=== PATIENT | male | born 1990 | race African-American/Black ===

== ENCOUNTER 2022-11-11 23:35 | Emergency (ER) | payer OTHER ==
[2022-11-11] MEDS ORDERED: levETIRAcetam 500 MG/5 ML VIAL ONE (23:52)
[2022-11-12 00:15] LABS: ALT (SGPT) 13 U/L (8-55); AST (SGOT) 22 U/L (5-34); Albumin 4.4 g/dL (3.5-5.0); Alkaline Phosphatase 66 U/L (40-110); Anion Gap 13 mmol/L (10-20); BUN (Urea Nitrogen) 11 mg/dL (8.9-20.6); Bilirubin, Total 1.1 mg/dL (0.2-1.2); Calc. Creatinine Clearance 0 mL/min (70-130); Calcium 9.8 mg/dL (7.8-10.44); Carbon Dioxide 23 mmol/L (22-29); Chloride 108 mmol/L (98-107); Estimated GFR 119; Globulin 2.8 g/dL (2.4-3.5); Glucose 121 mg/dL (70-105); Potassium 3.5 mmol/L (3.5-5.1); Protein, Total 7.2 g/dL (6.0-8.3); Sodium 140 mmol/L (136-145)
[2022-11-12] MEDS ORDERED: Ketorolac Tromethamine 30 MG/ML VIAL ONE (00:24)
[2022-11-12 00:28] LABS: Bilirubin Neg (Negative); Blood, Urine Negative (Negative); Clarity Clear (Clear); Glucose, Urine (Dipstick) Normal (Negative); Ketone, Urine Negative (Negative); Leukocyte Negative (Negative); Nitrite Negative (Negative); Protein, Urine (Dipstick) 15 mg/dl (Neg-Trace); pH, Urine 6.5 (5.0-9.0)
[2022-11-12 00:31] LABS: #Monocytes 0.7 10x3/uL (0.0-1.1); #Neutrophils 4.9 10x3/uL (1.5-8.4); %Basophils 0.4 % (0.0-2.0); %Eosinophils 0.5 % (0.0-6.0); %Monocytes 8.1 % (0.0-10.0); %Neutrophils 58.6 % (40.0-75.0); Hematocrit 45.8 % (38.8-50.0); Mean Corpuscular HGB CONC 34.9 g/dL (32.0-36.0); Mean Corpuscular Hemoglobin 33.8 pg (27.0-33.0); Mean Corpuscular Volume 96.6 fl (81.2-95.1); Mean Platelet Volume 12.1 fl (7.4-10.4); Platelet Count 193 10x3/uL (150-450); RBC Distribution Width 12.9 % (11.5-14.5); Red Blood Cell (RBC) Count 4.74 10x6/uL (4.32-5.72); White Blood Cell (WBC) Count 8.3 10x3/uL (3.5-10.5)
[2022-11-12 00:52] LABS: Bacteria/HPF None Seen HPF (None Seen); CAUTI Indications for Culture Dysuria,urgency,freq; RBC/HPF None Seen HPF (0-3); Squamous Epithelial None Seen HPF (0-3); WBC/HPF 0-3 HPF (0-3)
[2022-11-12 00:53] LABS: Urine Culture Reflex No No
== END 2022-11-12 01:15 | disposition home or self-care (01) ==
LOC: CSHERS 23:35
DX: G40.909 Epilepsy, unspecified, not intractable, without status epilepticus (principal); I10 Essential (primary) hypertension; F17.210 Nicotine dependence, cigarettes, uncomplicated
CPT/HCPCS: 36415; 71045; 80053; 81001; 85025; J1885; J1953

== ENCOUNTER 2022-11-12 11:50 | Inpatient (IN) | payer OTHER ==
[2022-11-12 12:29] LABS: #Monocytes 0.6 10x3/uL (0.0-1.1); #Neutrophils 5.1 10x3/uL (1.5-8.4); %Basophils 0.1 % (0.0-2.0); %Eosinophils 0.4 % (0.0-6.0); %Lymphocytes 20.7 % (18.0-47.0); %Monocytes 8.2 % (0.0-10.0); %Neutrophils 70.2 % (40.0-75.0); Hematocrit 45.5 % (38.8-50.0); Hemoglobin 15.7 g/dL (13.5-17.5); Mean Corpuscular HGB CONC 34.5 g/dL (32.0-36.0); Mean Corpuscular Hemoglobin 33.3 pg (27.0-33.0); Mean Corpuscular Volume 96.4 fl (81.2-95.1); Mean Platelet Volume 11.7 fl (7.4-10.4); Platelet Count 179 10x3/uL (150-450); RBC Distribution Width 12.9 % (11.5-14.5); Red Blood Cell (RBC) Count 4.72 10x6/uL (4.32-5.72); White Blood Cell (WBC) Count 7.2 10x3/uL (3.5-10.5)
[2022-11-12 12:36] LABS: Amphetamine Not Detected (NotDetected); Barbiturates Screen Not Detected (NotDetected); Benzodiazepine Screen Not Detected (NotDetected); Cocaine Metabolite Screen Not Detected (NotDetected); Methadone Not Detected (NotDetected); Methamphetamine Not Detected (NotDetected); Opiate Screen Not Detected (NotDetected); Oxycodone Screen Not Detected (NotDetected); Phencyclidine (PCP) Not Detected (NotDetected); THC/Cannabinoid Screen Detected (NotDetected); Tricyclic Screen Not Detected (NotDetected)
[2022-11-12 12:40] LABS: ALT (SGPT) 13 U/L (8-55); AST (SGOT) 23 U/L (5-34); Albumin 4.6 g/dL (3.5-5.0); Alcohol Less than 10.0 mg/dL (Less than 10); Alkaline Phosphatase 68 U/L (40-110); Anion Gap 16 mmol/L (10-20); BUN (Urea Nitrogen) 11 mg/dL (8.9-20.6); Calc. Creatinine Clearance 0 mL/min (70-130); Calcium 10.1 mg/dL (7.8-10.44); Carbon Dioxide 22 mmol/L (22-29); Chloride 109 mmol/L (98-107); Estimated GFR 118; Globulin 2.7 g/dL (2.4-3.5); Glucose 92 mg/dL (70-105); Potassium 3.7 mmol/L (3.5-5.1); Protein, Total 7.3 g/dL (6.0-8.3); Sodium 143 mmol/L (136-145)
[2022-11-12 12:41] LABS: Acetaminophen Less than 10 mcg/mL (10.0-30.0); Alcohol Less than 10.0 mg/dL (Less than 10); Salicylate Less than 8.0 mg/dL (15.0-30.0)
[2022-11-12] MEDS ORDERED: Haloperidol Lactate 5 MG/ML VIAL ONE (12:42)
[2022-11-12] MEDS ORDERED: diphenhydrAMINE 50 MG/ML VIAL ONE (12:42)
[2022-11-12] MEDS ORDERED: Lorazepam 2 MG/ML VIAL ONE (12:42)
[2022-11-12] MEDS ORDERED: KETAMINE 100 MG/ML (5ML VIAL) ONE (12:53)
[2022-11-12] MEDS ORDERED: Iopamidol 370 76% 100 ML VIAL ONE (14:33)
[2022-11-12] MEDS ORDERED: Lorazepam 2 MG/ML VIAL SLOW IVP PRN ×2 (16:37→16:39)
[2022-11-12] MEDS ORDERED: traZODone HCl 50 MG TAB PO PRN (16:52)
[2022-11-12 16:55] VITALS: BMI 38.4
[2022-11-12 16:57] LABS: Bilirubin Neg (Negative); Blood, Urine Negative (Negative); Clarity Clear (Clear); Glucose, Urine (Dipstick) Normal (Negative); Ketone, Urine Negative (Negative); Leukocyte Negative (Negative); Nitrite Negative (Negative); Protein, Urine (Dipstick) 15 mg/dl (Neg-Trace)
[2022-11-12] MEDS ORDERED: diphenhydrAMINE 50 MG CAP PO SCH (17:00)
[2022-11-12] MEDS ORDERED: OLANZapine 5 MG TAB PO SCH (17:00)
[2022-11-12 17:06] LABS: Bacteria/HPF 2+ HPF (None Seen); CAUTI Indications for Culture Alt mental st,lethar; Mucous/LPF 1+ LPF (<2+); RBC/HPF 0-3 HPF (0-3); Squamous Epithelial 0-3 HPF (0-3); Urine Culture Reflex No No; WBC/HPF 0-3 HPF (0-3)
[2022-11-12] MEDS: busPIRone HCl 5 MG TAB PO SCH (20:36)
[2022-11-12] MEDS ORDERED: Ziprasidone 20 MG CAP PO SCH (20:45)
[2022-11-13] MEDS ORDERED: KETAMINE 100 MG/ML (5ML VIAL) ONE ×2 (02:27→04:00)
[2022-11-13] MEDS ORDERED: Dexmedetomidine In 0.9 % NaCl 100 ML IVPB SCH (02:30)
[2022-11-13] MEDS ORDERED: KETAMINE 100 MG/ML (5ML VIAL) IM PRN ×2 (02:45→06:27)
[2022-11-13] MEDS ORDERED: Ziprasidone 20 MG VIAL IM SCH ×2 (02:45→09:00)
[2022-11-13] MEDS ORDERED: KETAMINE 100 MG/ML (5ML VIAL) IM SCH ×3 (02:45→08:15)
[2022-11-13] MEDS ORDERED: Sterile Water 10 ML VIAL FS PRN ×2 (03:00→08:30)
[2022-11-13] MEDS ORDERED: diphenhydrAMINE 50 MG/ML VIAL ONE (03:21)
[2022-11-13] MEDS ORDERED: diphenhydrAMINE 50 MG/ML VIAL IM SCH ×3 (03:30→11:30)
[2022-11-13 05:34] LABS: #Monocytes 0.6 10x3/uL (0.0-1.1); #Neutrophils 4.2 10x3/uL (1.5-8.4); %Basophils 0.3 % (0.0-2.0); %Eosinophils 0.4 % (0.0-6.0); %Monocytes 9.4 % (0.0-10.0); %Neutrophils 63.5 % (40.0-75.0); Hematocrit 43.3 % (38.8-50.0); Hemoglobin 14.9 g/dL (13.5-17.5); Mean Corpuscular HGB CONC 34.4 g/dL (32.0-36.0); Mean Corpuscular Hemoglobin 33.6 pg (27.0-33.0); Mean Corpuscular Volume 97.5 fl (81.2-95.1); Mean Platelet Volume 11.8 fl (7.4-10.4); Platelet Count 134 10x3/uL (150-450); RBC Distribution Width 13.1 % (11.5-14.5); Red Blood Cell (RBC) Count 4.44 10x6/uL (4.32-5.72); White Blood Cell (WBC) Count 6.7 10x3/uL (3.5-10.5)
[2022-11-13 05:54] LABS: ALT (SGPT) 12 U/L (8-55); AST (SGOT) 29 U/L (5-34); Albumin 3.7 g/dL (3.5-5.0); Alkaline Phosphatase 45 U/L (40-110); Anion Gap 14 mmol/L (10-20); BUN (Urea Nitrogen) 10 mg/dL (8.9-20.6); Bilirubin, Total 2.3 mg/dL (0.2-1.2); Calc. Creatinine Clearance 246 mL/min (70-130); Calcium 9.1 mg/dL (7.8-10.44); Carbon Dioxide 18 mmol/L (22-29); Chloride 112 mmol/L (98-107); Estimated GFR 122; Globulin 2.5 g/dL (2.4-3.5); Glucose 81 mg/dL (70-105); Magnesium 1.6 mg/dL (1.6-2.6); Potassium 3.8 mmol/L (3.5-5.1); Protein, Total 6.2 g/dL (6.0-8.3); Sodium 140 mmol/L (136-145)
[2022-11-13 06:08] LABS: HIV (1/2) Antibody/Antigen Non-Reactive (NonReactive); HIV 1/2 INDEX 0.09 S/CO (<1.00)
[2022-11-13 06:09] LABS: Syphilis Antibody Nonreactive (Nonreactive); Syphilis Antibody Index 0.04 S/CO (<1.00 Non-Reactive)
[2022-11-13] MEDS: busPIRone HCl 5 MG TAB PO SCH ×2 (08:21→08:52)
[2022-11-13] MEDS ORDERED: Sertraline 100 MG TAB PO SCH (09:00)
[2022-11-13] MEDS: Haloperidol Lactate 5 MG/ML VIAL IM PRN ×2 (10:09→10:45)
[2022-11-13] MEDS ORDERED: chlorproMAZINE HCl 50 MG/2 ML AMP IM PRN (11:30)
[2022-11-13] MEDS ORDERED: Magnesium Oxide 400 MG TAB PO SCH (12:15)
[2022-11-13 14:40] LABS: Hemoglobin A1c 4.1 % (4.0-6.0)
[2022-11-13 15:04] LABS: Vitamin B12 391 pg/mL (211-911)
[2022-11-13 15:48] VITALS: BP 129/76; TEMP 98.4
[2022-11-13] MEDS ORDERED: QUEtiapine 100 MG TAB PO SCH (21:00)
== END 2022-11-13 16:20 | disposition short-term general hospital (02) | DRG 907 ==
LOC: SUATTDRO 11:50 → CSHERS 11:50 → CSHIMCU 16:48
PROVIDERS: ADMIT Family Medicine; ATTEND Family Medicine
PROC: 03QY0ZZ Repair Upper Artery, Open Approach (ICD-10-PCS; principal; 2022-11-12)
PROC: 0HQEXZZ Repair Left Lower Arm Skin, External Approach (ICD-10-PCS; 2022-11-12)
PROC: 05QY0ZZ Repair Upper Vein, Open Approach (ICD-10-PCS; 2022-11-12)
DX: S55.812A Laceration of other blood vessels at forearm level, left arm, initial encounter (principal); G93.41 Metabolic encephalopathy; F23 Brief psychotic disorder; F31.9 Bipolar disorder, unspecified; S41.112A Laceration without foreign body of left upper arm, initial encounter; I10 Essential (primary) hypertension; F17.210 Nicotine dependence, cigarettes, uncomplicated; Z79.899 Other long term (current) drug therapy; S00.83XA Contusion of other part of head, initial encounter; S51.812A Laceration without foreign body of left forearm, initial encounter; F43.20 Adjustment disorder, unspecified; X78.8XXA Intentional self-harm by other sharp object, initial encounter; Z59.00 Homelessness unspecified; F41.9 Anxiety disorder, unspecified; G40.909 Epilepsy, unspecified, not intractable, without status epilepticus
CPT/HCPCS: 36415; 70450; 71045; 80053; 80306; 80307; 81001; 82550; 82607; 83036; 83735; 84443; 85025; 86780; 86850; 86900; 86901; 87389; 96365; 96375; J1200; J1630; J1885; J1953; J2060; J3230; J3486; Q9967

== ENCOUNTER 2023-02-01 22:52 | Emergency (ER) | payer OTHER ==
[2023-02-01] MEDS ORDERED: Ketorolac Tromethamine 30 MG/ML VIAL ONE (23:27)
[2023-02-01] MEDS ORDERED: Acetaminophen 500 MG TAB ONE (23:28)
[2023-02-01 23:37] LABS: #Monocytes 0.6 10x3/uL (0.0-1.1); #Neutrophils 4.7 10x3/uL (1.5-8.4); %Basophils 0.3 % (0.0-2.0); %Eosinophils 0.4 % (0.0-6.0); %Lymphocytes 26.9 % (18.0-47.0); %Neutrophils 63.9 % (40.0-75.0); Hematocrit 46.6 % (38.8-50.0); Hemoglobin 16.1 g/dL (13.5-17.5); Mean Corpuscular HGB CONC 34.5 g/dL (32.0-36.0); Mean Corpuscular Hemoglobin 33.5 pg (27.0-33.0); Mean Corpuscular Volume 96.9 fl (81.2-95.1); Platelet Count 149 10x3/uL (150-450); RBC Distribution Width 12.1 % (11.5-14.5); Red Blood Cell (RBC) Count 4.81 10x6/uL (4.32-5.72); White Blood Cell (WBC) Count 7.4 10x3/uL (3.5-10.5)
[2023-02-01 23:47] LABS: ALT (SGPT) 26 U/L (8-55); AST (SGOT) 34 U/L (5-34); Albumin 4.2 g/dL (3.5-5.0); Alkaline Phosphatase 55 U/L (40-110); Anion Gap 16 mmol/L (10-20); BUN (Urea Nitrogen) 15 mg/dL (8.9-20.6); Bilirubin, Total 1.5 mg/dL (0.2-1.2); Calc. Creatinine Clearance 0 mL/min (70-130); Calcium 9.9 mg/dL (7.8-10.44); Carbon Dioxide 21 mmol/L (22-29); Chloride 103 mmol/L (98-107); Estimated GFR 120; Globulin 3.2 g/dL (2.4-3.5); Glucose 140 mg/dL (70-105); Potassium 3.1 mmol/L (3.5-5.1); Protein, Total 7.4 g/dL (6.0-8.3); Sodium 137 mmol/L (136-145)
[2023-02-01 23:52] LABS: Troponin I Less than 0.010 ng/mL (< 0.028)
[2023-02-02 01:14] LABS: SARS-CoV-2 NAA Rapid Test Not Detected (NotDetected)
== END 2023-02-02 01:50 | disposition home or self-care (01) ==
LOC: CSHERS 22:52
DX: B34.9 Viral infection, unspecified (principal); R06.02 Shortness of breath; F17.210 Nicotine dependence, cigarettes, uncomplicated; Z20.822 Contact with and (suspected) exposure to COVID-19
CPT/HCPCS: 71045; 80053; 83605; 84484; 85025; 93005; 96374; J1885